=== PATIENT | female | born 1985 | race Caucasian/White ===

== ENCOUNTER 2016-06-29 20:50 | Emergency (ER) | payer MEDICAID | END 2016-06-29 23:24 | disposition home or self-care (01) | LOC: D.ER 20:50 | DX: M25.562 Pain in left knee (principal); E87.6 Hypokalemia ==

== ENCOUNTER 2017-04-04 22:33 | Emergency (ER) | payer MEDICAID | END 2017-04-05 00:11 | disposition home or self-care (01) | LOC: D.ER 22:33 | DX: M25.462 Effusion, left knee (principal) ==

== ENCOUNTER 2017-12-10 22:21 | Emergency (ER) | payer MEDICAID ==
[~2017-12-10] VITALS: Ht 172.7 cm; Wt 118.2 kg
[2017-12-10 22:33] VITALS: Ht 172.7 cm; Wt 118.2 kg
[2017-12-10] MEDS ORDERED: XARELTO20 MG PO (22:34)
[2017-12-10 23:19] LABS: APPEARANCE TURBID (CLEAR); BILIRUBIN NEGATIVE (NEGATIVE); COLOR YELLOW (YELLOW); GLUCOSE NEGATIVE (NEGATIVE); KETONE NEGATIVE (NEGATIVE); NITRITE POSITIVE (NEGATIVE); PH 5.5 (5.0-6.0); PROTEIN 1+ mg/dL (NEGATIVE); SPECIFIC GRAVITY 1.015 (1.005-1.020); UROBILINOGEN NORMAL (NORMAL)
[2017-12-10 23:35] LABS: BACTERIA MANY /hpf (NONE SEEN); EPITHELIAL CELLS 0-5 /hpf (0-5); WHITE CELLS - URINE >50 /hpf (0-5)
[2017-12-10] MEDS ORDERED: MACROBID100 MG PO (23:43)
[2017-12-10] MEDS ORDERED: FLAGYL500 MG PO (23:43)
[2017-12-11] VITALS: BP 127/81
== END 2017-12-11 00:04 | disposition home or self-care (01) ==
LOC: D.ER 22:21
PROVIDERS: Emergency Medicine
DX: N39.0 Urinary tract infection, site not specified (principal); N76.0 Acute vaginitis; B96.89 Other specified bacterial agents as the cause of diseases classified elsewhere; M54.5 Low back pain; F17.200 Nicotine dependence, unspecified, uncomplicated; Z86.711 Personal history of pulmonary embolism; Z79.01 Long term (current) use of anticoagulants